=== PATIENT | male | born 1990 | race African-American/Black ===

== ENCOUNTER 2016-11-21 14:09 | Emergency (ER) | payer OTHER ==
[2016-11-21] MEDS ORDERED: NO MEDICATIONS (14:14)
== END 2016-11-21 15:24 | disposition home or self-care (01) ==
LOC: SED 14:09
DX: S61.512A Laceration without foreign body of left wrist, initial encounter (principal); Z23 Encounter for immunization; W45.8XXA Other foreign body or object entering through skin, initial encounter; Y92.69 Other specified industrial and construction area as the place of occurrence of the external cause; Y99.0 Civilian activity done for income or pay
CPT/HCPCS: 12002; 90471; 90715; 99283